=== PATIENT | female | born 2000 | race American Indian/Alaskan Native ===

== ENCOUNTER 2020-10-18 18:09 | Emergency (ER) | payer OTHER ==
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
== END 2020-10-18 21:25 | disposition home or self-care (01) ==
LOC: ED 18:09
CPT/HCPCS: 99282

== ENCOUNTER 2021-09-29 11:49 | Emergency (ER) | payer OTHER ==
[2021-09-29] MEDS ORDERED: dexAMETHasone 4 MG/ML VIAL IM ONE (14:46)
[2021-09-29] MEDS ORDERED: diphenhydrAMINE 25 MG CAP PO ONE (14:47)
[2021-09-29] MEDS ORDERED: METOCLOPRAMIDE 10 MG TAB PO ONE (14:47)
--- NOTE | 2021-09-29 16:31 | Emergency Department Report ---
ED Headache HPI - General Chief Complaint: Headache Stated Complaint: HEADACHE X8DAYS Time Seen by Provider: 09/29/21 14:36 - History of Present Illness Initial Comments: 21-year-old black female with no past medical history presents to the emergency department for evaluation of 7-day history of headache. She states that she took some Aleve for the headache once but had no improvement so decided not to take anymore medication. She denies nausea, vomiting, fever, photophobia, dizziness, and vision changes. She states that headache is 5 on a 10 point scale. Timing/Duration: 1 week Quality: moderate Head Injury Location: frontal Recent Head Trauma: no recent headache/trauma Associated Symptoms: denies: confusion, fatigue, facial pain, fever/chills, flushing, loss of consciousness, nausea/vomiting, nasal congestion, nasal drainage, numbness in legs/feet, seizures, sinus infection, stiff neck, vision changes, weakness Allergies/Adverse Reactions: Allergies No Known Allergies Allergy (Unverified 09/29/21 12:54) Home Medications: Ambulatory Orders Ketorolac [Toradol] 10 mg PO Q6H PRN #15 tablet 10/18/20 methOCARBAMOL [Robaxin] 750 mg PO Q8H PRN #21 tablet 10/18/20 ED Review of Systems ROS: Stated complaint: HEADACHE X8DAYS Other details as noted in HPI Comment: All other systems reviewed and negative Constitutional: denies: chills, fever Eyes: denies: eye pain, eye discharge, vision change ENT: denies: ear pain, throat pain, dental pain, congestion Respiratory: denies: cough, shortness of breath, SOB with exertion, SOB at rest, stridor, wheezing Cardiovascular: denies: chest pain, palpitations Gastrointestinal: denies: abdominal pain, nausea, vomiting, diarrhea, hematemesis, melena, hematochezia Genitourinary: denies: urgency, dysuria, frequency, hematuria, discharge Musculoskeletal: denies: back pain Neurological: headache. denies: weakness, numbness, paresthesias, confusion, abnormal gait, vertigo ED Past Medical Hx - Past Medical History Previous Medical History?: No - Surgical History Past Surgical History?: No - Social History Smoking Status: Never Smoker - Medications Home Medications: Home Medications Medication Instructions Recorded Confirmed Last Taken Type Ketorolac [Toradol] 10 mg PO Q6H PRN #15 tablet 10/18/20 Unknown Rx methOCARBAMOL [Robaxin] 750 mg PO Q8H PRN #21 tablet 10/18/20 Unknown Rx ED Physical Exam - General Limitations: No Limitations General appearance: alert, in no apparent distress - Head Head exam: Present: atraumatic, normocephalic - Eye Eye exam: Present: normal appearance. Absent: conjunctival injection - Neck Neck exam: Present: normal inspection, full ROM. Absent: meningismus, lymphadenopathy - Respiratory Respiratory exam: Present: normal lung sounds bilaterally. Absent: respiratory distress, wheezes, rales, rhonchi, stridor, chest wall tenderness - Cardiovascular Cardiovascular Exam: Present: regular rate, normal heart sounds - GI/Abdominal GI/Abdominal exam: Present: soft, normal bowel sounds. Absent: distended, tenderness, guarding, rebound, rigid - Extremities Exam Extremities exam: Present: normal inspection - Back Exam Back exam: Present: normal inspection. Absent: CVA tenderness (R), CVA tenderness (L) - Neurological Exam Neurological exam: Present: alert, oriented X3, normal gait - Expanded Neurological Exam Expanded Patient oriented to: Present: person, place, time Speech: Present: fluid speech Cranial nerves: EOM's Intact: Normal, Tongue Deviation: Normal, Facial Sensation: Normal Ataxia: Absent: yes Cerebellar function: Romberg: Normal Sensory exam: Upper Extremity Light Touch: Normal, Upper Extremity Temperature: Normal, Lower Extremity Light Touch: Normal, Lower Extremity Temperature: Normal Motor strength exam: RUE: 5, LUE: 5, RLE: 5, LLE: 5 Best Eye Response (Laurel): (4) open spontaneously Best Motor Response (Laurel): (6) obeys commands Best Verbal Response (Alfredo): (5) oriented Laurel Total: 15 - Psychiatric Psychiatric exam: Present: normal affect, normal mood - Skin Skin exam: Present: warm, dry, intact, normal color ED Course Vital Signs 09/29/21 09/29/21 12:52 16:41 Temperature 98.1 F 98.6 F Pulse Rate 71 62 Respiratory 18 14 Rate Blood Pressure 136/70 Blood Pressure 120/78 [Right] O2 Sat by Pulse 99 98 Oximetry - Reevaluation(s) Reevaluation #1: 09/29/21 16:30 Headache resolved and patient states that she feels much better. ED Medical Decision Making - Medical Decision Making 21-year-old black female with no past medical history presents to the emergency department for evaluation of 7-day history of headache. She states that she took some Aleve for the headache once but had no improvement so decided not to take anymore medication. She denies nausea, vomiting, fever, photophobia, dizziness, and vision changes. She states that headache is 5 on a 10 point scale. Headache resolved after Decadron 8 mg IM, Benadryl 25 mg p.o., and Reglan 10 mg p.o. Patient states that she feels much better, so she will be discharged home and advised to use Tylenol and ibuprofen as needed for headache. She is advised to follow-up with her primary care provider if no improvement or worsening symptoms. She verbalized understanding of and agreement with plan of care. Critical care attestation.: If time is entered above; I have spent that time in minutes in the direct care of this critically ill patient, excluding procedure time. ED Disposition Clinical Impression: Headache Qualifiers: Headache type: unspecified Headache chronicity pattern: acute headache Intractability: not intractable Qualified Code(s): R51.9 - Headache, unspecified Disposition: 01 HOME / SELF CARE / HOMELESS Is pt being admited?: No Does the pt Need Aspirin: No Condition: Stable Instructions: General Headache Without Cause, [id number] Additional Instructions: Use Tylenol and ibuprofen as needed for headache. Follow-up with primary care provider if worsening symptoms. Return to the emergency department as needed. Referrals: LANNY METCALF MD [Staff Physician] - 3-5 Days Forms: Work/School Release Form(ED) Time of Disposition: 16:31
[2021-09-29 16:47] VITALS: BP 120/78
== END 2021-09-29 16:48 | disposition home or self-care (01) ==
LOC: ED 11:49
DX: R51.9 Headache, unspecified (principal)
CPT/HCPCS: 96372; 99282; J1100